=== PATIENT | male | born 1995 | race Two or more races ===

== ENCOUNTER 2020-02-29 10:36 | Emergency (ER) | payer SELFPAY ==
[~2020-02-29] VITALS: Ht 172.7 cm; Wt 78.5 kg
[2020-02-29 10:45] VITALS: BP 146/94
--- NOTE | 2020-02-29 10:45 | NUR ---
ED Nurse Note: Patient walked in to ED c/o laceration on top of head. Controlled bleeding. Per pt, he fell on the ground and hit his head on the cement. Denies LOC/ KO.
[2020-02-29] MEDS ORDERED: Tetanus/Diptheria/Pertussis IM ONE (11:00)
[2020-02-29] MEDS ORDERED: Lidocaine 1% 10mg/ml/EPI 0.01mg/ml 30ml INJ ONE (11:00)
[2020-02-29] MEDS ORDERED: Lidocaine 1% 10mg/ml/Epi 0.005mg/ml 30ml vial INJ ONE (11:00)
[2020-02-29] MEDS ORDERED: BACITRACIN ZIN1 EACH TOPIC (11:09)
[2020-02-29] MEDS ORDERED: Bacitracin Oint UD TOPIC ONE (11:11)
[2020-02-29 11:15] VITALS: BP 146/94
--- NOTE | 2020-02-29 11:15 | NUR ---
ED Nurse Note: Pt cleared by ERMD for discharge. DC instructions/prescription was given and explained to pt and verbalized understanding of teachings. All medical deviecs such as ID band removed. Pt is AAO x4, ambulatory and left with all personal belongings.
--- NOTE | 2020-02-29 11:18 | Emergency Room Report ---
History of Present Illness General Chief Complaint: Laceration Source: Patient Present Illness HPI Patient is a 24-year-old male presents after head injury. Patient reports having fallen and hit the back of his head. Denies any loss of consciousness. Denies any significant headache or weakness. Injury occurred approximate 1 hour prior to arrival. Denies any recent tetanus vaccine. Had not been vomiting. Denies any prior medical history. Allergies: Coded Allergies: No Known Allergies (Unverified , 02/29/20) COVID-19 Screening Contact w/high risk pt: No Recent Travel to affected area: No Experienced COVID-19 symptoms?: No Patient History Past Medical History: see triage record Reviewed Nursing Documentation: PMH: Agreed; PSxH: Agreed Nursing Documentation-PMH Past Medical History: No Stated History Review of Systems All Other Systems: negative except mentioned in HPI Physical Exam Vital Signs Date Time Temp Pulse Resp B/P (MAP) Pulse Ox O2 Delivery O2 Flow Rate FiO2 02/29/20 10:39 99.0 104 16 146/94 (111) 98 Room Air General Appearance: well appearing, no apparent distress, alert, GCS 15 Head: normocephalic, other - Occipital scalp laceration 2 cm ENT: hearing grossly normal, normal voice Neck: full range of motion, supple Respiratory: no respiratory distress, speaking full sentences Cardiovascular #1: normal peripheral pulses, no edema, no JVD Gastrointestinal: normal inspection Musculoskeletal: no calf tenderness Neurologic: alert, motor strength/tone normal, security risk analyst III-XII nml as tested, oriented x3, normal gait Psychiatric: mood/affect normal Skin: no rash, laceration - 2 cm occipital laceration Procedures Laceration/Wound Repair Laceration/Wound Repair : Consent: Emergent Wound Location: head Wound's Depth, Shape: superficial Wound Length (cm): 2 Wound Explored: clean Irrigated w/ Saline (ccs): 20 Anesthesia: Lidocaine w/ Epi Volume Anesthetic (ccs): 6 Wound Repaired With: renee - 5 Patient Tolerated: Well Complications: None Medical Decision Making Diagnostic Impression: Primary Impression: Laceration ER Course Patient presented for laceration after a fall. This include was not limited to foreign body, nerve injury, intracranial hemorrhage among others. Patient has a benign exam and does not appear to require any imaging or laboratory testing at this time. Patient was noted to have an unremarkable neurologic exam. He is ambulatory without assistance and appears to be awake alert and oriented. Laceration was irrigated and closed with renee. Patient tolerated this well. Patient was advised wound care. He is advised to have wound rechecked in 3 days as well as to have renee removed in 10 days. He was advised to return if worse. The patient is advised to follow up with primary care doctor in 1-2 days. Patient is advised to return if any worsening condition or if any changes in status that are concerning. This report is dictated with [employer] sword swallower software which may occasionally lead to discrepancies related to use of this software. Last Vital Signs Date Time Temp Pulse Resp B/P (MAP) Pulse Ox O2 Delivery O2 Flow Rate FiO2 02/29/20 10:45 98.9 104 16 146/94 98 Room Air Status: improved Disposition: HOME, SELF-CARE Condition: Stable Scripts Bacitracin Zinc* (BACITRACIN ZINC*) 1 Each Packet 1 APPLIC TOPIC THREE TIMES A DAY, #20 PACKET Prov: Mat Hanna MD 02/29/20 Patient Instructions: Laceration Care, Adult Additional Instructions: Follow up for wound recheck in 2-3 days. Staple removal in 10 days. Mat Hanna MD February 29, 2020 11:18
== END 2020-02-29 11:30 | disposition home or self-care (01) ==
LOC: EMR 11:18
DX: S01.01XA Laceration without foreign body of scalp, initial encounter (principal); W19.XXXA Unspecified fall, initial encounter; Y92.9 Unspecified place or not applicable; Z23 Encounter for immunization
CPT/HCPCS: 90471; 90715; 99283